=== PATIENT | female | born 1960 | race Caucasian/White ===

== ENCOUNTER 2018-07-24 07:08 | Inpatient (IN) | payer BC ==
[~2018-07-24 07:08] MED LIST: Acetaminophen 325 MG Tab PO SCH; Lactated Ringers 1,000 ML IV SCH; Lidocaine 1%/Sod Bicarbonate in NS 8.4% 1 ML Syringe IDERM PRN; Pregabalin 25 MG Cap PO SCH; Sodium Chloride 0.9% 10 ML Syringe FLUSH PRN; oxyCODONE ER 10 MG TAB.ER PO SCH
[2018-07-24] MEDS ORDERED: Bupivacaine 0.25% 10 ML SDV ONE ×3 (07:17→08:07)
[2018-07-24] MEDS ORDERED: Vancomycin 1 GM SDV ONE (07:17)
[2018-07-24] MEDS ORDERED: ceFAZolin 1 GM Vial ONE ×2 (07:17→07:44)
[2018-07-24] MEDS ORDERED: Iodine/Sodium Iodide 2% Tincture 30 ML Bottle ONE (07:17)
--- NOTE | 2018-07-24 07:28 | PCM.PREANE ---
Preanesthetic Assessment - Procedure Proposed Procedure: Right knee arthroplasty, left knee steroid injection - Anesthesia/Transfusion/Family Hx Anesthesia History: Prior Anesthesia Without Reaction Family History of Anesthesia Reaction: No Transfusion History: Prior Transfusion Without Reaction Intubation History: Unknown - Review of Systems General: No Symptoms Pulmonary: No Symptoms Cardiovascular: No Symptoms Gastrointestinal: No Symptoms Neurological: No Symptoms Other: Reports: Anxiety - Physical Assessment NPO Status Date: 07/23/18 NPO Status Time: 22:00 ASA Class: 2 Mental Status: Alert & Oriented x3 Airway Class: Mallampati = 1 Dentition: Reports: Normal Dentition Thyro-Mental Finger Breadths: 3 Mouth Opening Finger Breadths: 4 ROM/Head Extension: Full Lungs: Clear to Auscultation, Normal Respiratory Effort Cardiovascular: Regular Rate, Regular Rhythm - Lab Values: Hgb 13.9 Plt 247 - Allergies Allergies/Adverse Reactions: Allergies Allergy/AdvReac Type Severity Reaction Status Date / Time No Known Allergies Allergy Verified 07/21/18 13:39 - Blood Blood Available: No - Anesthesia Plan Pre-Op Medication Ordered: None - Acknowledgements Anesthesia Type Planned: Spinal Pt an Appropriate Candidate for the Planned Anesthesia: Yes Alternatives and Risks of Anesthesia Discussed w Pt/Guardian: Yes Pt/Guardian Understands and Agrees with Anesthesia Plan: Yes PreAnesthesia Questionnaire HEENT History: Reports: Impaired Vision Other HEENT History: wears glasses Cardiovascular History: Reports: High Cholesterol Other Cardiovascular History: Hypotension Respiratory History: Reports: SOB Gastrointestinal History: Reports: Chronic Constipation Genitourinary History: Reports: Urinary Incontinence [employer] FEEDER History: Reports: , Spontaneous Other OB/BYN History: pelvic prolapse Musculoskeletal History: Reports: Osteoarthritis Psychiatric History: Reports: Anxiety Other Psychiatric History: hx of depression and anxiety but is notan issue at this time. Hematologic History: Reports: Blood Transfusion(s) - Infectious Disease History Infectious Disease History: Reports: Chicken Pox - Past Surgical History HEENT Surgical History: Reports: None Cardiovascular Surgical History: Reports: None Respiratory Surgical History: Reports: None GI Surgical History: Reports: None Female Surgical History: Reports: Hysterectomy, Tubal Ligation, Other (See Below) Other Female Surgeries/Procedures: Bladder Sling, Diagnostic Laparascopy = bleeding from vaginal cuff Endocrine Surgical History: Reports: None Neurological Surgical History: Reports: None Musculoskeletal Surgical History: Reports: None Oncologic Surgical History: Reports: None Dermatological Surgical History: Reports: None - SUBSTANCE USE Smoking Status *Q: Current Every Day Smoker Tobacco Use Within Last Twelve Months: Cigarettes Days Per Week of Alcohol Use: 3 Number of Drinks Per Day: 1 Total Drinks Per Week: 3 Recreational Drug Use History: No - HOME MEDS Home Medications: Home Meds Escitalopram Oxalate 20 mg PO DAILY 01/26/16 [History] Spironolactone [Aldactone] 25 mg PO DAILY 01/26/16 [History] Zolpidem Tartrate 5 mg PO BEDTIME PRN 01/26/16 [History] Cholecalciferol (Vitamin D3) [Vitamin D3] 2,000 unit PO DAILY 01/27/16 [History] Docusate Sodium [Colace] 100 mg PO BID cap 01/30/16 [Rx] Polyethylene Glycol 3350 [MiraLAX] 17 gm PO TID PRN #0 packet 01/30/16 [Rx] ALPRAZolam [Xanax] 0.25 mg PO Q12H PRN 07/21/18 [History] Celecoxib [CeleBREX] 100 mg PO DAILY PRN 07/21/18 [History] Prochlorperazine Maleate [Compazine] 10 mg PO QID PRN 07/21/18 [History] atorvaSTATin [Lipitor] 10 mg PO BEDTIME 07/21/18 [History] - CURRENT (IN HOUSE) MEDS Current Meds: Current Medications Acetaminophen (Tylenol) 975 mg PO ONETIME DIANA Aspirin (Ecotrin) 325 mg PO BID DIANA Bisacodyl (Dulcolax) 5 mg PO DAILY PRN PRN Reason: Constipation Morphine Sulfate 8 mg/Epinephrine HCl 0.3 mg/Cefuroxime Sodium 750 mg/Sodium Chloride 27.9 ml 0 mg .XX ONETIME ONE Stop: 07/24/18 06:35 Cyclobenzaprine HCl (Flexeril) 10 mg PO TID PRN PRN Reason: Spasms Docusate Sodium (Colace) 100 mg PO BID DIANA Famotidine (Pepcid) 20 mg PO Q12H [facility] Lactated Ringer's (Ringers, Lactated) 1,000 mls @ 125 mls/hr IV ASDIRECTED [facility] Cefazolin Sodium/Dextrose 2 gm (/ Premix) 50 mls @ 100 mls/hr IV Q8H DIANA Stop: 07/24/18 23:14 Lidocaine/Sodium Bicarbonate (Buffered Lidocaine 1% In Ns 8.4%) 0.25 ml IDERM ONETIME PRN PRN Reason: Prior to IV Start Magnesium Hydroxide (Milk Of Magnesia) 30 ml PO BID PRN PRN Reason: Constipation Morphine Sulfate (Morphine) 2 mg IVPUSH Q2H PRN PRN Reason: Breakthrough Pain Naloxone HCl (Narcan) 0.1 mg IVPUSH Q5M PRN PRN Reason: Oversedation Ondansetron HCl (Zofran) 4 mg IVPUSH Q6H PRN PRN Reason: Nausea/Vomiting Oxycodone HCl (Oxycontin) 10 mg PO ONETIME DIANA Oxycodone/Acetaminophen (Percocet 325-5 Mg) 1 - 2 tab PO Q4H PRN PRN Reason: Pain Pregabalin (Lyrica) 50 mg PO ONETIME DIANA Senna (Senna) 8.6 mg PO BID PRN PRN Reason: Constipation Sodium Chloride (Saline Flush) 10 ml FLUSH ASDIRECTED PRN PRN Reason: Keep Vein Open Discontinued Medications Bupivacaine HCl (Sensorcaine-Mpf 0.25%) Confirm Administered Dose 30 ml .ROUTE .STK-MED ONE Stop: 07/24/18 07:18 Cefazolin Sodium (Ancef) Confirm Administered Dose 2 gm .ROUTE .STK-MED ONE Stop: 07/24/18 07:18 Iodine (Iodine 2% Mild Tincture) Confirm Administered Dose 30 ml .ROUTE .STK- MED ONE Stop: 07/24/18 07:18 Tranexamic Acid (Cyklokapron) Confirm Administered Dose 1,000 mg .ROUTE .STK- MED ONE Stop: 07/24/18 07:17 Vancomycin HCl (Vancomycin) Confirm Administered Dose 1 gm .ROUTE .STK-MED ONE Stop: 07/24/18 07:18
[2018-07-24] MEDS ORDERED: Propofol 200 MG/20 ML SDV ONE (07:43)
[2018-07-24] MEDS ORDERED: Midazolam 1 MG/ML 2 ML SDV ONE (07:44)
[2018-07-24] MEDS ORDERED: Lidocaine 1% 4 ML ONE ×2 (07:47→08:31)
[2018-07-24] MEDS ORDERED: Ropivacaine 0.5% 5 MG/ML 30 ML SDV ONE (07:48)
[2018-07-24] MEDS ORDERED: EPINEPHrine 1 MG/ML SDV ONE (07:48)
[2018-07-24] MEDS ORDERED: Triamcinolone Acetonide 40 MG/ML 1 ML MDV ONE ×2 (08:05→09:11)
[2018-07-24] MEDS ORDERED: Bupivacaine 0.25% 30 ML SDV ONE (08:05)
[2018-07-24] MEDS ORDERED: Bupivacaine 0.75% 30 ML SDV ONE (08:12)
[2018-07-24] MEDS ORDERED: Ondansetron 4 MG/2 ML SDV ONE (08:20)
[2018-07-24] MEDS ORDERED: Morphine 8 MG, EPINEPHrine 0.3 MG, Cefuroxime 750 MG, Sodium Chloride 0.9% 28.9 ML ONE ×4 (08:30)
[2018-07-24] MEDS ORDERED: Lactated Ringers 1,000 ML ONE ×2 (08:44→11:28)
[2018-07-24] MEDS ORDERED: ePHEDrine/Normal Saline 25 MG/5 ML Syringe ONE ×2 (09:05→11:23)
[2018-07-24] MEDS ORDERED: Sennosides 8.6 MG Tab PO PRN (09:30)
[2018-07-24] MEDS ORDERED: Naloxone 0.4 MG/ML SDV IVPUSH PRN (09:30)
[2018-07-24] MEDS ORDERED: Morphine 2 MG/ML Syringe IVPUSH PRN (09:30)
[2018-07-24] MEDS ORDERED: Bisacodyl 5 MG Tab PO PRN (09:30)
[2018-07-24] MEDS ORDERED: Magnesium Hydroxide 400 MG/5 ML Susp 30 ML Cup PO PRN (09:30)
[2018-07-24] MEDS ORDERED: Cyclobenzaprine 10 MG Tab PO PRN (09:30)
[2018-07-24] MEDS ORDERED: Ondansetron 4 MG/2 ML SDV IVPUSH PRN ×2 (09:30→10:07)
[2018-07-24] MEDS ORDERED: Polyethylene Glycol 3350 Powder 17 GM Packet PO PRN (09:44)
[2018-07-24] MEDS ORDERED: ALPRAZolam 0.25 MG Tab PO PRN (09:44)
--- NOTE | 2018-07-24 10:05 | PCM.POSTAN ---
POST ANESTHESIA ASSESSMENT - MENTAL STATUS Mental Status: Alert - VITAL SIGNS Pulse Rate: 68 SaO2: 98 Resp Rate: 10 Blood Pressure: 114/73 Temperature: 36.5 C - RESPIRATORY Respiratory Status: Respiratory Rate WNL, Airway Patent, O2 Saturation Stable - CARDIOVASCULAR CV Status: Pulse Rate WNL, Blood Pressure Stable - GASTROINTESTINAL GI Status: No Symptoms - POST OP HYDRATION Hydration Status: Adequate & Stable
[2018-07-24] MEDS ORDERED: diphenhydrAMINE 50 MG/ML SDV IVPUSH PRN (10:07)
[2018-07-24] MEDS ORDERED: fentaNYL 100 MCG/2 ML SDV IVPUSH PRN (10:07)
--- NOTE | 2018-07-24 10:37 | PCM.SN ---
- Free Text/Narrative Note: Right selective femoral nerve block at the adductor canal for post-procedure pain control Time Out: 1020 Start: 1022 End: 1025 Chart reviewed. Consent signed. Questions answered. Appropriate monitors applied. Time out performed. Right mid-shaft femur evaluated with ultrasound. Scanning medially femur, I was able to identify the femoral artery in the adductor canal. The saphenous nerve was lateral to the artery. The skin was prepped lateral to the ultrasound probe with chlorahexadine. The 21ga 4 insulated block needle was inserted under direct ultrasound guidance into the adductor canal. 20mL of 0.5% ropivacaine with 1:200,000 epinephrine was injected cirmcumferentially about the nerve with intermittent negative aspiration every 5mL. Patient tolerated the procedure well. See pictures on progress note and vital signs on nurses notes. Block completed postoperatively. Chris Dutta LINESPERSON
--- NOTE | 2018-07-24 11:10 | CR ---
Right knee: AP and lateral views of the right knee were obtained. Comparison: No prior knee study. Knee prosthesis is seen. Soft tissue air is noted from the surgical procedure. Underlying bony structures are intact. Impression: 1. Satisfactory postoperative radiographic appearance of recently placed right knee prosthesis. Diagnostic code #2
[2018-07-24] MEDS ORDERED: Phenylephrine/Normal Saline 100 MCG/ML 10 ML Syringe ONE (12:05)
[2018-07-24] MEDS: Acetaminophen/oxyCODONE 325-5 MG Tab PO PRN ×3 (14:08→23:52)
[2018-07-24] MEDS: ceFAZolin 2 GM in Premix Bag 1 BAG IV SCH ×2 (15:13→23:34)
--- NOTE | 2018-07-24 16:03 | PCM.CONS ---
H&P History of Present Illness - General Date of Service: 07/24/18 Admit Problem/Dx: Admission Diagnosis/Problem Admission Diagnosis/Problem Osteoarthritis of knee Source of Information: Patient, Old Records, Provider, RN, RN Notes Reviewed History Limitations: Reports: No Limitations - History of Present Illness Initial Comments - Free Text/Narative: Ermelinda Case is a 58 yo female patient of Dr. Rodriguez who is post-operative day 0 of right TKA with left knee steroid injection. Hospital medicine was consulted for post-operative medical care. At this time she is resting comfortably in bed. Pain is controlled. She denies any chest pain, shortness of breath, palpitations , nausea, or vomiting. She carries a history of: Abnormal EKG, HLD, Hypotension , Chronic constipation, urinary incontinency, pelvic prolapse, osteoarthritis, anxiety. She is a current daily smoker. She is a full code. Her primary care provider is Christine Ramirez NP. - Related Data Allergies/Adverse Reactions: Allergies Allergy/AdvReac Type Severity Reaction Status Date / Time No Known Allergies Allergy Verified 07/21/18 13:39 Home Medications: Home Meds Escitalopram Oxalate 20 mg PO DAILY 01/26/16 [History] Spironolactone [Aldactone] 25 mg PO DAILY 01/26/16 [History] Zolpidem Tartrate 5 mg PO BEDTIME PRN 01/26/16 [History] Cholecalciferol (Vitamin D3) [Vitamin D3] 2,000 unit PO DAILY 01/27/16 [History] Docusate Sodium [Colace] 100 mg PO BID cap 01/30/16 [Rx] Polyethylene Glycol 3350 [MiraLAX] 17 gm PO TID PRN #0 packet 01/30/16 [Rx] ALPRAZolam [Xanax] 0.25 mg PO Q12H PRN 07/21/18 [History] Prochlorperazine Maleate [Compazine] 10 mg PO QID PRN 07/21/18 [History] atorvaSTATin [Lipitor] 10 mg PO BEDTIME 07/21/18 [History] Acetaminophen/oxyCODONE [Percocet 325-5 MG] 1 - 2 tab PO Q6H PRN #60 tablet [Rx] Aspirin [Ecotrin] 325 mg PO BID #84 tab.ec 07/24/18 [Rx] Bisacodyl [Dulcolax] 5 mg PO DAILY PRN tablet 07/24/18 [Rx] Cyclobenzaprine [Flexeril] 10 mg PO TID PRN #40 tablet 07/24/18 [Rx] Famotidine [Pepcid] 20 mg PO Q12H tablet 07/24/18 [Rx] Magnesium Hydroxide [Milk of Magnesia] 30 ml PO BID PRN cup 07/24/18 [Rx] Sennosides [Senna] 8.6 mg PO BID PRN tablet 07/24/18 [Rx] Past Medical History HEENT History: Reports: Impaired Vision Other HEENT History: wears glasses Cardiovascular History: Reports: High Cholesterol Other Cardiovascular History: Hypotension Respiratory History: Reports: SOB Gastrointestinal History: Reports: Chronic Constipation Genitourinary History: Reports: Urinary Incontinence [employer] WRAPPER History: Reports: , Spontaneous Other OB/BYN History: pelvic prolapse Musculoskeletal History: Reports: Osteoarthritis Psychiatric History: Reports: Anxiety Other Psychiatric History: hx of depression and anxiety but is notan issue at this time. Hematologic History: Reports: Blood Transfusion(s) - Infectious Disease History Infectious Disease History: Reports: Chicken Pox - Past Surgical History HEENT Surgical History: Reports: None Cardiovascular Surgical History: Reports: None Respiratory Surgical History: Reports: None GI Surgical History: Reports: None Female Surgical History: Reports: Hysterectomy, Tubal Ligation, Other (See Below) Other Female Surgeries/Procedures: Bladder Sling, Diagnostic Laparascopy = bleeding from vaginal cuff Endocrine Surgical History: Reports: None Neurological Surgical History: Reports: None Musculoskeletal Surgical History: Reports: None Oncologic Surgical History: Reports: None Dermatological Surgical History: Reports: None Social & Family History - Family History Family Medical History: Noncontributory Cardiac: Reports: Hypertension, Other (See Below) Other Cardiac Family History: atheroschlerosis Neurological: Reports: Alzheimers Disease - Tobacco Use Smoking Status *Q: Light Tobacco Smoker Years of Tobacco use: 1 Packs/Tins Daily: 0.2 Used Tobacco, but Quit: No Tobacco Use Comment: States she smoke in the past for about 10years and quit when she was 31 years old, but started again 1.5 years ago. Recenlty trying to quit. Second Hand Smoke Exposure: No - Caffeine Use Caffeine Use: Reports: Coffee, Soda Other Caffeine Use: 1 cup in the AM. - Alcohol Use Days Per Week of Alcohol Use: 3 Number of Drinks Per Day: 2 Total Drinks Per Week: 6 - Recreational Drug Use Recreational Drug Use: No Drug Use in Last 12 Months: No H&P Review of Systems - Review of Systems: Review Of Systems: See Below General: Reports: No Symptoms. Denies: Fever, Chills, Malaise, Fatigue HEENT: Reports: No Symptoms. Denies: Headaches, Sore Throat Pulmonary: Reports: No Symptoms. Denies: Shortness of Breath, Wheezing, Pleuritic Chest Pain, Cough, Sputum Cardiovascular: Reports: No Symptoms. Denies: Chest Pain, Palpitations, Dyspnea on Exertion, Edema Gastrointestinal: Reports: No Symptoms. Denies: Abdominal Pain, Constipation, Diarrhea, Nausea, Vomiting Genitourinary: Reports: No Symptoms. Denies: Pain Musculoskeletal: Reports: Leg Pain Skin: Reports: No Symptoms. Denies: Cyanosis Psychiatric: Reports: No Symptoms. Denies: Confusion Neurological: Reports: No Symptoms Hematologic/Lymphatic: Reports: No Symptoms Immunologic: Reports: No Symptoms Exam - Exam Exam: See Below - Vital Signs Vital Signs: Last Vital Signs Temp 97.2 F 07/24/18 11:00 Pulse 73 07/24/18 14:31 Resp 10 L 07/24/18 11:00 BP 127/76 07/24/18 14:31 Pulse Ox 97 07/24/18 14:31 Weight: 134 lb - Exam Quality Assessment: DVT Prophylaxis General: Alert, Oriented, Cooperative. No: Mild Distress HEENT: Conjunctiva Clear, EACs Clear, EOMI, Hearing Intact, Mucosa Moist & Burket , Posterior Pharynx Clear, PERRLA Neck: Supple, Trachea Midline Lungs: Clear to Auscultation, Normal Respiratory Effort Cardiovascular: Regular Rate, Regular Rhythm GI/Abdominal Exam: Normal Bowel Sounds, Soft, Non-Tender, No Organomegaly, No Distention (Female) Exam: Deferred Rectal (Female) Exam: Deferred Back Exam: Normal Inspection, Full Range of Motion Extremities: Non-Tender, No Pedal Edema, Normal Capillary Refill, Leg Pain, Limited Range of Motion, Other (Bandage in place on right leg. Bandage is dry and intact. Cooling pack in place. ) Peripheral Pulses: 2+: Radial (L), Radial (R), Dorsalis Pedis (L), Dorsalis Pedis (R) Skin: Warm, Dry, Intact Neurological: Cranial Nerves Intact (grossly ) Neuro Extensive - Mental Status: Alert, Oriented x3, Normal Mood/Affect, Normal Cognition Consult PN Assessment/Plan POD#: 0 Procedures: Procedures CARDIOVASCULAR STRESS TEST (07/20/18) CT ABD & PELV W/CONTRAST (06/11/14) HT MUSCLE IMAGE SPECT MULT (07/20/18) MR-STAPH DNA AMP PROBE (07/12/18) (1) S/P total knee arthroplasty SNOMED Code(s): 3207970818362, 509934822, 0892035523841 Code(s): Z96.659 - PRESENCE OF UNSPECIFIED ARTIFICIAL KNEE JOINT Priority: High Current Visit: Yes Qualifiers: Laterality: bilateral Qualified Code(s): Z96.653 - Presence of artificial knee joint, bilateral (2) Osteoarthritis SNOMED Code(s): 222457181 Code(s): M19.90 - UNSPECIFIED OSTEOARTHRITIS, UNSPECIFIED SITE Priority: High Current Visit: Yes Qualifiers: Osteoarthritis location: knee Osteoarthritis type: primary Laterality: bilateral Qualified Code(s): M17.0 - Bilateral primary osteoarthritis of knee (3) HLD (hyperlipidemia) SNOMED Code(s): 43642008 Code(s): E78.5 - HYPERLIPIDEMIA, UNSPECIFIED Priority: Medium Current Visit: No Qualifiers: Hyperlipidemia type: unspecified Qualified Code(s): E78.5 - Hyperlipidemia , unspecified (4) HTN (hypertension) SNOMED Code(s): 95924522 Code(s): I10 - ESSENTIAL (PRIMARY) HYPERTENSION Priority: Medium Current Visit: No Qualifiers: Hypertension type: unspecified Qualified Code(s): I10 - Essential (primary ) hypertension (5) Chronic constipation SNOMED Code(s): 513156893 Code(s): K59.09 - OTHER CONSTIPATION Priority: Medium Current Visit: No (6) Urinary incontinence SNOMED Code(s): 754417826 Code(s): R32 - UNSPECIFIED URINARY INCONTINENCE Priority: Medium Current Visit: No Qualifiers: Urinary Incontinence type: unspecified incontinence Qualified Code(s): R32 - Unspecified urinary incontinence (7) Pelvic prolapse SNOMED Code(s): 61987139 Code(s): N81.9 - FEMALE GENITAL PROLAPSE, UNSPECIFIED Priority: Low Current Visit: No Qualifiers: Prolapse type: unspecified female genital prolapse Qualified Code(s): N81.9 - Female genital prolapse, unspecified (8) Anxiety SNOMED Code(s): 95044078 Code(s): F41.9 - ANXIETY DISORDER, UNSPECIFIED Priority: Medium Current Visit: No Problem List Initiated/Reviewed/Updated: Yes Plan: I/P: Acute: S/P right total knee arthroplasty - post-operative day 0 -DVT prophylaxis and pain management per primary care team -PT/OT -IS/RT -Monitor oxygen saturation -Titrate oxygen as needed -Vital signs stable -Monitor labs -Pre-operative Hgb was 13.9 -Pre-operative GFR was 88 Osteoarthritis of bilateral knees -Pain management per primary care team S/P left knee cortisone injection Chronic: HLD HTN Chronic constipation Urinary incontinence Pelvic prolapse Anxiety Plan: CM for discharge planning GI prophylaxis Home medications as indicated Other orders as listed above Routine AM labs She is a full code. Her PCP is Christine Ramirez NP Thank you for allowing us to participate in the care of this patient!! Requesting Provider: Dr. Rodriguez Date Consult Requested: 07/24/18 Reason for Consult: Post-operative medical management Patient History Reviewed: Yes Admission H&P Reviewed: Yes Time Spent (in minutes): 40
[2018-07-24] MEDS: Famotidine 20 MG Tab PO SCH (20:00)
[2018-07-24] MEDS ORDERED: Zolpidem 5 MG Tab PO PRN (21:00)
[2018-07-24] MEDS ORDERED: Simvastatin 10 MG Tab PO SCH (21:00)
[2018-07-24] MEDS ORDERED: Docusate Sodium 100 MG Cap PO SCH ×2 (21:00)
[2018-07-25] MEDS: Acetaminophen/oxyCODONE 325-5 MG Tab PO PRN ×2 (04:22→08:22)
--- NOTE | 2018-07-25 06:31 | PCM.CONSN ---
- General Info Date of Service: 07/25/18 Admission Dx/Problem (Free Text): Admission Diagnosis/Problem Admission Diagnosis/Problem Osteoarthritis of knee Subjective Update: In to see Ermelinda. She is just getting been working with PT and she's been doing very well. Labs and vital signs today remains stable. No nursing or patient concerns. Functional Status: Reports: Pain Controlled, Tolerating Diet, Ambulating, Urinating, Incentive Spirometry. Denies: New Symptoms - Review of Systems General: Reports: No Symptoms. Denies: Fever, Weakness, Fatigue, Malaise, Chills HEENT: Reports: No Symptoms. Denies: Headaches, Sore Throat Pulmonary: Reports: No Symptoms. Denies: Shortness of Breath, Pleuritic Chest Pain, Cough, Sputum, Wheezing Cardiovascular: Reports: No Symptoms. Denies: Chest Pain, Palpitations, Dyspnea on Exertion Gastrointestinal: Reports: No Symptoms. Denies: Abdominal Pain, Constipation, Diarrhea, Nausea, Vomiting Genitourinary: Reports: No Symptoms. Denies: Pain Musculoskeletal: Reports: Leg Pain Skin: Reports: No Symptoms. Denies: Cyanosis Neurological: Reports: No Symptoms. Denies: Confusion Psychiatric: Reports: No Symptoms - Patient Data Vitals - Most Recent: Last Vital Signs Temp 97.9 F 07/24/18 23:43 Pulse 74 07/25/18 04:25 Resp 18 07/25/18 04:25 BP 134/73 07/25/18 04:25 Pulse Ox 98 07/25/18 04:25 Weight - Most Recent: 136 lb 11.2 oz I&O - Last 24 Hours: Intake & Output 07/24/18 07/24/18 07/25/18 14:59 22:59 06:59 Intake Total 181 554 2046 Output Total 2750 Balance 250 500 -1500 Med Orders - Current: Current Medications Alprazolam (Xanax) 0.25 mg PO Q12H PRN PRN Reason: Anxiety Aspirin (Ecotrin) 325 mg PO BID [facility] Bisacodyl (Dulcolax) 5 mg PO DAILY PRN PRN Reason: Constipation Cholecalciferol (Vitamin D3) 2,000 units PO DAILY [facility] Citalopram Hydrobromide (Celexa) 40 mg PO DAILY [facility] Cyclobenzaprine HCl (Flexeril) 10 mg PO TID PRN PRN Reason: Spasms Famotidine (Pepcid) 20 mg PO Q12H [facility] Last Admin: 07/24/18 20:00 Dose: 20 mg Cefazolin Sodium/Dextrose 2 gm (/ Premix) 50 mls @ 100 mls/hr IV Q8H [facility] Stop: 07/25/18 08:29 Last Admin: 07/24/18 23:34 Dose: 100 mls/hr Magnesium Hydroxide (Milk Of Magnesia) 30 ml PO BID PRN PRN Reason: Constipation Morphine Sulfate (Morphine) 2 mg IVPUSH Q2H PRN PRN Reason: Breakthrough Pain Naloxone HCl (Narcan) 0.1 mg IVPUSH Q5M PRN PRN Reason: Oversedation Ondansetron HCl (Zofran) 4 mg IVPUSH Q6H PRN PRN Reason: Nausea/Vomiting Oxycodone/Acetaminophen (Percocet 325-5 Mg) 1 - 2 tab PO Q4H PRN PRN Reason: Pain Last Admin: 07/25/18 04:22 Dose: 2 tab Polyethylene Glycol (Miralax) 17 gm PO TID PRN PRN Reason: Constipation Senna (Senna) 8.6 mg PO BID PRN PRN Reason: Constipation Simvastatin (Zocor) 10 mg PO BEDTIME [facility] Last Admin: 07/24/18 20:00 Dose: 10 mg Spironolactone (Aldactone) 25 mg PO DAILY [facility] Zolpidem Tartrate (Ambien) 5 mg PO BEDTIME PRN PRN Reason: Insomnia Discontinued Medications Acetaminophen (Tylenol) 975 mg PO ONETIME [facility] Stop: 07/24/18 10:00 Last Admin: 07/24/18 07:36 Dose: 975 mg Bupivacaine HCl (Sensorcaine-Mpf 0.25%) Confirm Administered Dose 30 ml .ROUTE .STK-MED ONE Stop: 07/24/18 07:18 Bupivacaine HCl (Sensorcaine-Mpf 0.25%) Confirm Administered Dose 10 ml .ROUTE .STK-MED ONE Stop: 07/24/18 07:48 Last Admin: 07/24/18 09:18 Dose: 30 ml Bupivacaine HCl (Marcaine 0.25%) Confirm Administered Dose 30 ml .ROUTE .STK- MED ONE Stop: 07/24/18 08:06 Bupivacaine HCl (Sensorcaine-Mpf 0.25%) Confirm Administered Dose 10 ml .ROUTE .STK-MED ONE Stop: 07/24/18 08:08 Last Admin: 07/24/18 09:38 Dose: 4 ml Bupivacaine HCl (Sensorcaine-Mpf 0.75%) Confirm Administered Dose 30 ml .ROUTE .STK-MED ONE Stop: 07/24/18 08:13 Cefazolin Sodium (Ancef) Confirm Administered Dose 2 gm .ROUTE .STK-MED ONE Stop: 07/24/18 07:18 Last Admin: 07/24/18 09:13 Dose: 2 gm Cefazolin Sodium (Ancef) Confirm Administered Dose 2 gm .ROUTE .STK-MED ONE Stop: 07/24/18 07:45 Morphine Sulfate 8 mg/Epinephrine HCl 0.3 mg/Cefuroxime Sodium 750 mg/Sodium Chloride 28.9 ml 0 mg .XX ONETIME ONE Stop: 07/24/18 08:31 Last Admin: 07/24/18 09:17 Dose: 758.3 mg Diphenhydramine HCl (Benadryl) 25 mg IVPUSH Q6H PRN PRN Reason: pruritis Stop: 07/24/18 13:00 Docusate Sodium (Colace) 100 mg PO BID [facility] Ephedrine Sulfate (Ephedrine In Ns) Confirm Administered Dose 25 mg .ROUTE .STK- MED ONE Stop: 07/24/18 09:06 Ephedrine Sulfate (Ephedrine In Ns) Confirm Administered Dose 25 mg .ROUTE .STK- MED ONE Stop: 07/24/18 11:24 Epinephrine HCl (Adrenalin) Confirm Administered Dose 1 mg .ROUTE .STK-MED ONE Stop: 07/24/18 07:49 Fentanyl (Sublimaze) 50 mcg IVPUSH Q5M PRN PRN Reason: Pain Stop: 07/24/18 13:00 Lactated Ringer's (Ringers, Lactated) 1,000 mls @ 125 mls/hr IV ASDIRECTED [facility] Stop: 07/24/18 23:00 Last Admin: 07/24/18 07:25 Dose: 125 mls/hr Lidocaine HCl (Xylocaine-Mpf 1%) Confirm Administered Dose 4 mls @ as directed .ROUTE .STK-MED ONE Stop: 07/24/18 07:48 Lidocaine HCl (Xylocaine-Mpf 1%) Confirm Administered Dose 5 mls @ as directed .ROUTE .STK-MED ONE Stop: 07/24/18 07:48 Lidocaine HCl (Xylocaine-Mpf 1%) Confirm Administered Dose 4 mls @ as directed .ROUTE .[facility] ONE Stop: 07/24/18 08:32 Lactated Ringer's (Ringers, Lactated) Confirm Administered Dose 1,000 mls @ as directed .ROUTE .[facility] ONE Stop: 07/24/18 08:45 Lactated Ringer's (Ringers, Lactated) Confirm Administered Dose 1,000 mls @ as directed .ROUTE .[facility] ONE Stop: 07/24/18 11:29 Iodine (Iodine 2% Mild Tincture) Confirm Administered Dose 30 ml .ROUTE .[facility] ONE Stop: 07/24/18 07:18 Last Admin: 07/24/18 09:11 Dose: 18 ml Lidocaine/Sodium Bicarbonate (Buffered Lidocaine 1% In Ns 8.4%) 0.25 ml IDERM ONETIME PRN PRN Reason: Prior to IV Start Stop: 07/24/18 18:00 Last Admin: 07/24/18 07:20 Dose: 0.25 ml Midazolam HCl (Versed 1 Mg/Ml) Confirm Administered Dose 2 mg .ROUTE .[facility] ONE Stop: 07/24/18 07:45 Ondansetron HCl (Zofran) Confirm Administered Dose 4 mg .ROUTE .[facility] ONE Stop: 07/24/18 08:21 Ondansetron HCl (Zofran) 4 mg IVPUSH ONETIME PRN PRN Reason: Nausea/Vomiting Stop: 07/24/18 13:00 Oxycodone HCl (Oxycontin) 10 mg PO ONETIME [facility] Stop: 07/24/18 10:00 Last Admin: 07/24/18 07:35 Dose: 10 mg Phenylephrine HCl (Phenylephrine In Ns 100 Mcg/Ml) Confirm Administered Dose 1 mg .ROUTE .[facility] ONE Stop: 07/24/18 12:06 Pregabalin (Lyrica) 50 mg PO ONETIME [facility] Stop: 07/24/18 10:00 Last Admin: 07/24/18 07:36 Dose: 50 mg Propofol (Diprivan 20 Ml) Confirm Administered Dose 400 mg .ROUTE .[facility] ONE Stop: 07/24/18 07:44 Ropivacaine (Naropin 0.5%) Confirm Administered Dose 30 ml .ROUTE .STK-MED ONE Stop: 07/24/18 07:49 Sodium Chloride (Saline Flush) 10 ml FLUSH ASDIRECTED PRN PRN Reason: Keep Vein Open Stop: 07/24/18 18:00 Tranexamic Acid (Cyklokapron) Confirm Administered Dose 1,000 mg .ROUTE .STK- MED ONE Stop: 07/24/18 07:17 Last Admin: 07/24/18 09:24 Dose: 1,000 mg Triamcinolone Acetonide (Kenalog-40) Confirm Administered Dose 40 mg .ROUTE .STK -MED ONE Stop: 07/24/18 08:06 Last Admin: 07/24/18 09:38 Dose: 80 mg Triamcinolone Acetonide (Kenalog-40) Confirm Administered Dose 40 mg .ROUTE .STK -MED ONE Stop: 07/24/18 09:12 Vancomycin HCl (Vancomycin) Confirm Administered Dose 1 gm .ROUTE .STK-MED ONE Stop: 07/24/18 07:18 Last Admin: 07/24/18 09:20 Dose: 1 gm - Exam Quality Assessment: DVT Prophylaxis General: Alert, Oriented, Cooperative, No Acute Distress HEENT: Pupils Equal, Pupils Reactive, EOMI, Mucous Membr. Moist/[place] Neck: Supple, Trachea Midline, No JVD Lungs: Clear to Auscultation, Normal Respiratory Effort Cardiovascular: Regular Rate, Regular Rhythm GI/Abdominal Exam: Normal Bowel Sounds, Soft, Non-Tender, No Organomegaly, No Distention (Female) Exam: Deferred Back Exam: Normal Inspection, Full Range of Motion Extremities: Non-Tender, No Pedal Edema, Normal Capillary Refill, Leg Pain, Limited Range of Motion, Other (Bandage in place on right leg. Cooling pack in place ) Peripheral Pulses: 2+: Radial (L), Radial (R), Dorsalis Pedis (L), Dorsalis Pedis (R) Skin: Warm, Dry, Intact Wound/Incisions: Dressing Dry and Intact, No Drainage Neurological: No New Focal Deficit Psy/Mental Status: Alert, Normal Affect, Normal Mood Consult PN Assessment/Plan POD#: 1 Procedures: Procedures CARDIOVASCULAR STRESS TEST (07/20/18) CT ABD & PELV W/CONTRAST (06/11/14) HT MUSCLE IMAGE SPECT MULT (07/20/18) [facility] DNA AMP PROBE (07/12/18) (1) S/P total knee arthroplasty SNOMED Code(s): 2400386621154, 691008540, 2865148373871 Code(s): Z96.659 - PRESENCE OF UNSPECIFIED ARTIFICIAL KNEE JOINT Priority: High Current Visit: Yes Qualifiers: Laterality: bilateral Qualified Code(s): Z96.653 - Presence of artificial knee joint, bilateral (2) Osteoarthritis SNOMED Code(s): 402644554 Code(s): M19.90 - UNSPECIFIED OSTEOARTHRITIS, UNSPECIFIED SITE Priority: High Current Visit: Yes Qualifiers: Osteoarthritis location: knee Osteoarthritis type: primary Laterality: bilateral Qualified Code(s): M17.0 - Bilateral primary osteoarthritis of knee (3) HLD (hyperlipidemia) SNOMED Code(s): 37769273 Code(s): E78.5 - HYPERLIPIDEMIA, UNSPECIFIED Priority: Medium Current Visit: No Qualifiers: Hyperlipidemia type: unspecified Qualified Code(s): E78.5 - Hyperlipidemia , unspecified (4) HTN (hypertension) SNOMED Code(s): 70661530 Code(s): I10 - ESSENTIAL (PRIMARY) HYPERTENSION Priority: Medium Current Visit: No Qualifiers: Hypertension type: unspecified Qualified Code(s): I10 - Essential (primary ) hypertension (5) Chronic constipation SNOMED Code(s): 434629315 Code(s): K59.09 - OTHER CONSTIPATION Priority: Medium Current Visit: No (6) Urinary incontinence SNOMED Code(s): 790873420 Code(s): R32 - UNSPECIFIED URINARY INCONTINENCE Priority: Medium Current Visit: No Qualifiers: Urinary Incontinence type: unspecified incontinence Qualified Code(s): R32 - Unspecified urinary incontinence (7) Pelvic prolapse SNOMED Code(s): 23788294 Code(s): N81.9 - FEMALE GENITAL PROLAPSE, UNSPECIFIED Priority: Low Current Visit: No Qualifiers: Prolapse type: unspecified female genital prolapse Qualified Code(s): N81.9 - Female genital prolapse, unspecified (8) Anxiety SNOMED Code(s): 38346702 Code(s): F41.9 - ANXIETY DISORDER, UNSPECIFIED Priority: Medium Current Visit: No Problem List Initiated/Reviewed/Updated: Yes Plan: I/P: Acute: S/P right total knee arthroplasty - post-operative day 1 -DVT prophylaxis and pain management per primary care team -PT/OT -IS/RT -Monitor oxygen saturation -Titrate oxygen as needed -Vital signs stable -Monitor labs -Pre-operative Hgb was 13.9; Now 12.2 -Pre-operative GFR was 88; Now >60 Osteoarthritis of bilateral knees -Pain management per primary care team S/P left knee cortisone injection Chronic: HLD HTN Chronic constipation Urinary incontinence Pelvic prolapse Anxiety Plan: CM for discharge planning GI prophylaxis Home medications as indicated Other orders as listed above Routine AM labs She is a full code. Her PCP is Christine Ramirez NP From a hospitalist standpoint Ermelinda is doing well. She has been up ambulating and working with therapies. Pain is controlled. She has urinated and is off of oxygen. Labs and vital signs remain stable. No nursing or patient concerns. She is cleared for discharge pending primary team and PT/OT agreement. Thank you for allowing us to participate in the care of this patient!!
--- NOTE | 2018-07-25 07:48 | PCM.SURGPN ---
- General Info Date of Service: 07/25/18 POD#: 1 Functional Status: Reports: Pain Controlled, Tolerating Diet, Ambulating, Urinating, Incentive Spirometry, Other (The pt states she is doing well. ) - Patient Data Vitals - Most Recent: Last Vital Signs Temp 97.9 F 07/24/18 23:43 Pulse 74 07/25/18 04:25 Resp 18 07/25/18 04:25 BP 134/73 07/25/18 04:25 Pulse Ox 98 07/25/18 04:25 Weight - Most Recent: 136 lb 11.2 oz I&O - Last 24 Hours: Intake & Output 07/24/18 07/25/18 07/25/18 22:59 06:59 14:59 Intake Total 500 1250 Output Total 2750 Balance 500 -1500 Lab Results Last 24 Hrs: Laboratory Results - last 24 hr 07/25/18 07/25/18 Range/Units 05:41 05:41 WBC 7.99 (3.98-10.04) K/mm3 RBC 3.76 L (3.98-5.22) M/mm3 Hgb 12.2 (11.2-15.7) gm/L Hct 36.1 (34.1-44.9) % MCV 96.0 H (79.4-94.8) fl MCH 32.4 H (25.6-32.2) pg MCHC 33.8 (32.2-35.5) g/dl RDW Std Deviation 43.2 (36.4-46.3) fL Plt Count 244 (182-369) K/mm3 MPV 10.2 (9.4-12.3) fl Sodium 135 L (136-145) mEq/L Potassium 4.2 (3.5-5.1) mEq/L Chloride 99 (98-107) mEq/L Carbon Dioxide 27 (21-32) mEq/L Anion Gap 13.2 (5-15) BUN 13 (7-18) mg/dL Creatinine 0.8 (0.55-1.02) mg/dL Est Cr Clr Drug Dosing 61.36 mL/min Estimated GFR (MDRD) > 60 (>60) mL/min BUN/Creatinine Ratio 16.3 (14-18) Glucose 140 H (74-106) mg/dL Calcium 9.0 (8.5-10.1) mg/dL Total Bilirubin 0.5 (0.2-1.0) mg/dL AST 16 (15-37) U/L ALT 33 (14-59) U/L Alkaline Phosphatase 50 (46-116) U/L Total Protein 6.6 (6.4-8.2) g/dl Albumin 3.5 (3.4-5.0) g/dl Globulin 3.1 gm/dL Albumin/Globulin Ratio 1.1 (1-2) Med Orders - Current: Current Medications Alprazolam (Xanax) 0.25 mg PO Q12H PRN PRN Reason: Anxiety Aspirin (Ecotrin) 325 mg PO BID [facility] Bisacodyl (Dulcolax) 5 mg PO DAILY PRN PRN Reason: Constipation Cholecalciferol (Vitamin D3) 2,000 units PO DAILY [facility] Citalopram Hydrobromide (Celexa) 40 mg PO DAILY [facility] Cyclobenzaprine HCl (Flexeril) 10 mg PO TID PRN PRN Reason: Spasms Last Admin: 07/25/18 07:07 Dose: 10 mg Famotidine (Pepcid) 20 mg PO Q12H [facility] Last Admin: 07/24/18 20:00 Dose: 20 mg Cefazolin Sodium/Dextrose 2 gm (/ Premix) 50 mls @ 100 mls/hr IV Q8H [facility] Stop: 07/25/18 08:29 Last Admin: 07/24/18 23:34 Dose: 100 mls/hr Magnesium Hydroxide (Milk Of Magnesia) 30 ml PO BID PRN PRN Reason: Constipation Morphine Sulfate (Morphine) 2 mg IVPUSH Q2H PRN PRN Reason: Breakthrough Pain Naloxone HCl (Narcan) 0.1 mg IVPUSH Q5M PRN PRN Reason: Oversedation Ondansetron HCl (Zofran) 4 mg IVPUSH Q6H PRN PRN Reason: Nausea/Vomiting Oxycodone/Acetaminophen (Percocet 325-5 Mg) 1 - 2 tab PO Q4H PRN PRN Reason: Pain Last Admin: 07/25/18 04:22 Dose: 2 tab Polyethylene Glycol (Miralax) 17 gm PO TID PRN PRN Reason: Constipation Senna (Senna) 8.6 mg PO BID PRN PRN Reason: Constipation Simvastatin (Zocor) 10 mg PO BEDTIME [facility] Last Admin: 07/24/18 20:00 Dose: 10 mg Spironolactone (Aldactone) 25 mg PO DAILY [facility] Zolpidem Tartrate (Ambien) 5 mg PO BEDTIME PRN PRN Reason: Insomnia Discontinued Medications Acetaminophen (Tylenol) 975 mg PO ONETIME [facility] Stop: 07/24/18 10:00 Last Admin: 07/24/18 07:36 Dose: 975 mg Bupivacaine HCl (Sensorcaine-Mpf 0.25%) Confirm Administered Dose 30 ml .ROUTE .STK-MED ONE Stop: 07/24/18 07:18 Bupivacaine HCl (Sensorcaine-Mpf 0.25%) Confirm Administered Dose 10 ml .ROUTE .STK-MED ONE Stop: 07/24/18 07:48 Last Admin: 07/24/18 09:18 Dose: 30 ml Bupivacaine HCl (Marcaine 0.25%) Confirm Administered Dose 30 ml .ROUTE .STK- MED ONE Stop: 07/24/18 08:06 Bupivacaine HCl (Sensorcaine-Mpf 0.25%) Confirm Administered Dose 10 ml .ROUTE .STK-MED ONE Stop: 07/24/18 08:08 Last Admin: 07/24/18 09:38 Dose: 4 ml Bupivacaine HCl (Sensorcaine-Mpf 0.75%) Confirm Administered Dose 30 ml .ROUTE .STK-MED ONE Stop: 07/24/18 08:13 Cefazolin Sodium (Ancef) Confirm Administered Dose 2 gm .ROUTE .STK-MED ONE Stop: 07/24/18 07:18 Last Admin: 07/24/18 09:13 Dose: 2 gm Cefazolin Sodium (Ancef) Confirm Administered Dose 2 gm .ROUTE .STK-MED ONE Stop: 07/24/18 07:45 Morphine Sulfate 8 mg/Epinephrine HCl 0.3 mg/Cefuroxime Sodium 750 mg/Sodium Chloride 28.9 ml 0 mg .XX ONETIME ONE Stop: 07/24/18 08:31 Last Admin: 07/24/18 09:17 Dose: 758.3 mg Diphenhydramine HCl (Benadryl) 25 mg IVPUSH Q6H PRN PRN Reason: pruritis Stop: 07/24/18 13:00 Docusate Sodium (Colace) 100 mg PO BID [facility] Ephedrine Sulfate (Ephedrine In Ns) Confirm Administered Dose 25 mg .ROUTE .STK- MED ONE Stop: 07/24/18 09:06 Ephedrine Sulfate (Ephedrine In Ns) Confirm Administered Dose 25 mg .ROUTE .STK- MED ONE Stop: 07/24/18 11:24 Epinephrine HCl (Adrenalin) Confirm Administered Dose 1 mg .ROUTE .STK-MED ONE Stop: 07/24/18 07:49 Fentanyl (Sublimaze) 50 mcg IVPUSH Q5M PRN PRN Reason: Pain Stop: 07/24/18 13:00 Lactated Ringer's (Ringers, Lactated) 1,000 mls @ 125 mls/hr IV ASDIRECTED [facility] Stop: 07/24/18 23:00 Last Admin: 07/24/18 07:25 Dose: 125 mls/hr Lidocaine HCl (Xylocaine-Mpf 1%) Confirm Administered Dose 4 mls @ as directed .ROUTE .STK-MED ONE Stop: 07/24/18 07:48 Lidocaine HCl (Xylocaine-Mpf 1%) Confirm Administered Dose 5 mls @ as directed .ROUTE .STK-MED ONE Stop: 07/24/18 07:48 Lidocaine HCl (Xylocaine-Mpf 1%) Confirm Administered Dose 4 mls @ as directed .ROUTE .STK-MED ONE Stop: 07/24/18 08:32 Lactated Ringer's (Ringers, Lactated) Confirm Administered Dose 1,000 mls @ as directed .ROUTE .STK-MED ONE Stop: 07/24/18 08:45 Lactated Ringer's (Ringers, Lactated) Confirm Administered Dose 1,000 mls @ as directed .ROUTE .STK-MED ONE Stop: 07/24/18 11:29 Iodine (Iodine 2% Mild Tincture) Confirm Administered Dose 30 ml .ROUTE .STK- MED ONE Stop: 07/24/18 07:18 Last Admin: 07/24/18 09:11 Dose: 18 ml Lidocaine/Sodium Bicarbonate (Buffered Lidocaine 1% In Ns 8.4%) 0.25 ml IDERM ONETIME PRN PRN Reason: Prior to IV Start Stop: 07/24/18 18:00 Last Admin: 07/24/18 07:20 Dose: 0.25 ml Midazolam HCl (Versed 1 Mg/Ml) Confirm Administered Dose 2 mg .ROUTE .STK-MED ONE Stop: 07/24/18 07:45 Ondansetron HCl (Zofran) Confirm Administered Dose 4 mg .ROUTE .STK-MED ONE Stop: 07/24/18 08:21 Ondansetron HCl (Zofran) 4 mg IVPUSH ONETIME PRN PRN Reason: Nausea/Vomiting Stop: 07/24/18 13:00 Oxycodone HCl (Oxycontin) 10 mg PO ONETIME [facility] Stop: 07/24/18 10:00 Last Admin: 07/24/18 07:35 Dose: 10 mg Phenylephrine HCl (Phenylephrine In Ns 100 Mcg/Ml) Confirm Administered Dose 1 mg .ROUTE .STK-MED ONE Stop: 07/24/18 12:06 Pregabalin (Lyrica) 50 mg PO ONETIME [facility] Stop: 07/24/18 10:00 Last Admin: 07/24/18 07:36 Dose: 50 mg Propofol (Diprivan 20 Ml) Confirm Administered Dose 400 mg .ROUTE .STK-MED ONE Stop: 07/24/18 07:44 Ropivacaine (Naropin 0.5%) Confirm Administered Dose 30 ml .ROUTE .STK-MED ONE Stop: 07/24/18 07:49 Sodium Chloride (Saline Flush) 10 ml FLUSH ASDIRECTED PRN PRN Reason: Keep Vein Open Stop: 07/24/18 18:00 Tranexamic Acid (Cyklokapron) Confirm Administered Dose 1,000 mg .ROUTE .STK- MED ONE Stop: 07/24/18 07:17 Last Admin: 07/24/18 09:24 Dose: 1,000 mg Triamcinolone Acetonide (Kenalog-40) Confirm Administered Dose 40 mg .ROUTE .STK -MED ONE Stop: 07/24/18 08:06 Last Admin: 07/24/18 09:38 Dose: 80 mg Triamcinolone Acetonide (Kenalog-40) Confirm Administered Dose 40 mg .ROUTE .STK -MED ONE Stop: 07/24/18 09:12 Vancomycin HCl (Vancomycin) Confirm Administered Dose 1 gm .ROUTE .STK-MED ONE Stop: 07/24/18 07:18 Last Admin: 07/24/18 09:20 Dose: 1 gm - Exam Wound/Incisions: Dressing Dry and Intact General: Alert, Cooperative, No Acute Distress Lungs: Normal Respiratory Effort Extremities: Other (NVS intact for BLE. Yomaira's negative.) - Problem List Review Problem List Initiated/Reviewed/Updated: Yes - My Orders Last 24 Hours: Active Orders 24 hr Category Date Time Status Cooling Warming Measures [RC] ASDIRECTED Care 07/24/18 10:06 Inactive Notify Provider [RC] ASDIRECTED Care 07/24/18 10:06 Active Oxygen Therapy [RC] ASDIRECTED Care 07/24/18 10:06 Inactive Pulse Oximetry [RC] ASDIRECTED Care 07/24/18 10:06 Inactive Ready for Discharge [RC] PER UNIT ROUTINE Care 07/25/18 07:46 Ordered Verify Patient Consent Obtain [RC] ASDIRECTED Care 07/24/18 07:00 Inactive Vital Signs [RC] Q15M Care 07/24/18 10:06 Inactive Regular Diet [DIET] Diet 07/24/18 Lunch Active ALPRAZolam [Xanax] Med 07/24/18 09:44 Active 0.25 mg PO Q12H PRN Acetaminophen/oxyCODONE [Percocet 325-5 MG] Med 07/24/18 09:30 Active 1 - 2 tab PO Q4H PRN Aspirin [Ecotrin] Med 07/25/18 09:00 Active 325 mg PO BID Bisacodyl [Dulcolax] Med 07/24/18 09:30 Active 5 mg PO DAILY PRN Cholecalciferol (Vitamin D3) [Vitamin D3] Med 07/25/18 09:00 Active 2,000 units PO DAILY Citalopram [Celexa] Med 07/25/18 09:00 Active 40 mg PO DAILY Cyclobenzaprine [Flexeril] Med 07/24/18 09:30 Active 10 mg PO TID PRN Famotidine [Pepcid] Med 07/24/18 21:00 Active 20 mg PO Q12H Magnesium Hydroxide [Milk of Magnesia] Med 07/24/18 09:30 Active 30 ml PO BID PRN Morphine Med 07/24/18 09:30 Active 2 mg IVPUSH Q2H PRN Naloxone [Narcan] Med 07/24/18 09:30 Active 0.1 mg IVPUSH Q5M PRN Ondansetron [Zofran] Med 07/24/18 09:30 Active 4 mg IVPUSH Q6H PRN Polyethylene Glycol 3350 [MiraLAX] Med 07/24/18 09:44 Active 17 gm PO TID PRN Sennosides [Senna] Med 07/24/18 09:30 Active 8.6 mg PO BID PRN Simvastatin [Zocor] Med 07/24/18 21:00 Active 10 mg PO BEDTIME Spironolactone [Aldactone] Med 07/25/18 09:00 Active 25 mg PO DAILY Zolpidem [Ambien] Med 07/24/18 21:00 Active 5 mg PO BEDTIME PRN ceFAZolin [Ancef] 2 gm Med 07/24/18 16:00 Active Premix Bag 1 bag IV Q8H Medication Administration Instruction [OM.PC] Routine Ot 07/24/18 07:00 Ordered Medication Orders Alprazolam (Xanax) 0.25 mg PO Q12H PRN PRN Reason: Anxiety Aspirin (Ecotrin) 325 mg PO BID [facility] Bisacodyl (Dulcolax) 5 mg PO DAILY PRN PRN Reason: Constipation Cholecalciferol (Vitamin D3) 2,000 units PO DAILY [facility] Citalopram Hydrobromide (Celexa) 40 mg PO DAILY [facility] Cyclobenzaprine HCl (Flexeril) 10 mg PO TID PRN PRN Reason: Spasms Last Admin: 07/25/18 07:07 Dose: 10 mg Famotidine (Pepcid) 20 mg PO Q12H [facility] Last Admin: 07/24/18 20:00 Dose: 20 mg Cefazolin Sodium/Dextrose 2 gm (/ Premix) 50 mls @ 100 mls/hr IV Q8H [facility] Stop: 07/25/18 08:29 Last Admin: 07/24/18 23:34 Dose: 100 mls/hr Infusion: 07/24/18 15:43 Dose: 100 mls/hr Admin: 07/24/18 15:13 Dose: 100 mls/hr Magnesium Hydroxide (Milk Of Magnesia) 30 ml PO BID PRN PRN Reason: Constipation Morphine Sulfate (Morphine) 2 mg IVPUSH Q2H PRN PRN Reason: Breakthrough Pain Naloxone HCl (Narcan) 0.1 mg IVPUSH Q5M PRN PRN Reason: Oversedation Ondansetron HCl (Zofran) 4 mg IVPUSH Q6H PRN PRN Reason: Nausea/Vomiting Oxycodone/Acetaminophen (Percocet 325-5 Mg) 1 - 2 tab PO Q4H PRN PRN Reason: Pain Last Admin: 07/25/18 04:22 Dose: 2 tab Admin: 07/24/18 23:52 Dose: 2 tab Admin: 07/24/18 19:58 Dose: 2 tab Admin: 07/24/18 14:08 Dose: 2 tab Polyethylene Glycol (Miralax) 17 gm PO TID PRN PRN Reason: Constipation Senna (Senna) 8.6 mg PO BID PRN PRN Reason: Constipation Simvastatin (Zocor) 10 mg PO BEDTIME DIANA Last Admin: 07/24/18 20:00 Dose: 10 mg Spironolactone (Aldactone) 25 mg PO DAILY DIANA Zolpidem Tartrate (Ambien) 5 mg PO BEDTIME PRN PRN Reason: Insomnia - Assessment Assessment (Free Text/Narrative):: POD#1 - right TKA with left knee cortisone injection - Plan Plan (Free Text/Narrative):: 1. Discharge to home today. 2. Outpatient therapy. 3. ASA 325mg PO BID, frequent mobility. 4. Hgb 12.2. The pt's case was discussed with Dr. Rodriguez.
--- NOTE | 2018-07-25 07:50 | PCM.DCSUM1 ---
Discharge Summary - Hospital Course Brief History: Ermelinda is a 58 yo female who underwent right TKA with left knee cortisone injection with Dr. Rodriguez on 07-24-2018. The procedure was completed under spinal anesthesia. The pt tolerated the procedure well and was admitted to the Medical-Surgical Unit. Medical management was provided by the Hospitalist service. The pt's Hospital course was uneventful. The pt's Hgb on POD#1 was 12.2. On POD#1, 325mg ASA BID was initiated for VTE prophylaxis. SCDs and TEDs were also ordered. A Mepilex dressing was placed at the incision site at the time of surgery and remained clean and dry. The pt participated in P.T. and O.T. and progressed well. The pt was allowed to WBAT and used a FWW for mobility. On POD#1, the pt was deemed appropriate to discharge to home with her . - Discharge Data Discharge Date: 07/25/18 Discharge Disposition: Home, Self-Care 01 Condition: Good - Patient Summary/Data Consults: Consultations 07/24/18 06:33 OT Evaluation and Treatment [CONS] Routine PT Evaluation and Treatment [CONS] Routine 07/24/18 06:34 Consult to Physician [CONS] Routine - Patient Instructions Diet: Usual Diet as Tolerated Activity: Apply Ice, As Tolerated, Elevate Extremity, Full Weight Bearing Driving: Do Not Drive Showering/Bathing: May Shower Wound/Incision Care: Keep Operative Site/Wound Site Clean and Dry, Do NOT Change Dressing Notify Provider of: Fever, Increased Pain, Swelling and Redness, Drainage, Nausea and/or Vomiting Other/Special Instructions: Please get up and moving around EVERY HOUR while awake. Take a short walk every hour while awake. This helps to prevent blood clots. Have help with mobility as needed. Please take 325mg aspirin twice daily - this also helps to prevent blood clots. The medication is being used for blood clot prevention and not for pain control, so please use the medication twice daily as directed. You could use a medication like Zantac or Pepcid and a medication like omeprazole (Prilosec) or Nexium to protect your stomach while using the aspirin. Please wear the KAREN hose during the day and you may remove them at night. Please schedule for P.T. Complete the P.T. exercises and stretches that were instructed in the Hospital. Please use the pain medication as needed. The medication may cause drowsiness and/or constipation. You could use a stool softener like docusate sodium or Colace 100mg twice daily and/or a laxative like Miralax daily for constipation. Contact your primary care provider for further instructions if you are constipated. Discontinue use of the pain medication as soon as able. Please do not use other medications that may cause drowsiness (other pain medications, anxiety pills, sleeping pills, allergy medications that cause drowsiness) while using the pain medication. Please do not use alcohol while using the pain medication. Use the incentive spirometer often. Please place ice to the surgical site often. Place a towel between your skin and the blue pad. Please elevate the limb to decrease swelling. Keep the dressing in place until follow- up. Please notify the Clinic if the dressing is saturated or rolls. Increase protein intake in your diet as this helps with healing. If you are a diabetic, please closely monitor your blood sugars and notify your primary care provider of your values. Elevated blood sugars increases the risk of infection. Please call [phone] with questions or concerns. - Discharge Plan *PRESCRIPTION DRUG MONITORING PROGRAM REVIEWED*: No *COPY OF PRESCRIPTION DRUG MONITORING REPORT IN PATIENT TASH: No Prescriptions/Med Rec: Acetaminophen/oxyCODONE [Percocet 325-5 MG] 1 - 2 tab PO Q6H PRN #60 tablet PRN Reason: Pain Aspirin [Ecotrin] 325 mg PO BID #84 tab.ec Cyclobenzaprine [Flexeril] 10 mg PO TID PRN #40 tablet PRN Reason: Spasms Home Medications: Home Meds Escitalopram Oxalate 20 mg PO DAILY 01/26/16 [History] Spironolactone [Aldactone] 25 mg PO DAILY 01/26/16 [History] Zolpidem Tartrate 5 mg PO BEDTIME PRN 01/26/16 [History] Cholecalciferol (Vitamin D3) [Vitamin D3] 2,000 unit PO DAILY 01/27/16 [History] Docusate Sodium [Colace] 100 mg PO BID cap 01/30/16 [Rx] Polyethylene Glycol 3350 [MiraLAX] 17 gm PO TID PRN #0 packet 01/30/16 [Rx] ALPRAZolam [Xanax] 0.25 mg PO Q12H PRN 07/21/18 [History] Prochlorperazine Maleate [Compazine] 10 mg PO QID PRN 07/21/18 [History] atorvaSTATin [Lipitor] 10 mg PO BEDTIME 07/21/18 [History] Acetaminophen/oxyCODONE [Percocet 325-5 MG] 1 - 2 tab PO Q6H PRN #60 tablet [Rx] Aspirin [Ecotrin] 325 mg PO BID #84 tab.ec 07/24/18 [Rx] Bisacodyl [Dulcolax] 5 mg PO DAILY PRN tablet 07/24/18 [Rx] Cyclobenzaprine [Flexeril] 10 mg PO TID PRN #40 tablet 07/24/18 [Rx] Famotidine [Pepcid] 20 mg PO Q12H tablet 07/24/18 [Rx] Magnesium Hydroxide [Milk of Magnesia] 30 ml PO BID PRN cup 07/24/18 [Rx] Sennosides [Senna] 8.6 mg PO BID PRN tablet 07/24/18 [Rx] Patient Handouts: Steps to Quit Smoking Referrals: Jamia Avila PA-C [Physician [employer] Engineer] - - Discharge Summary/Plan Comment DC Time >30 min.: No - Patient Data Vitals - Most Recent: Last Vital Signs Temp 97.9 F 07/24/18 23:43 Pulse 74 07/25/18 04:25 Resp 18 07/25/18 04:25 BP 134/73 07/25/18 04:25 Pulse Ox 98 07/25/18 04:25 Weight - Most Recent: 136 lb 11.2 oz I&O - Last 24 hours: Intake & Output 07/24/18 07/25/18 07/25/18 22:59 06:59 14:59 Intake Total 500 1250 Output Total 2750 Balance 500 -1500 Lab Results - Last 24 hrs: Laboratory Results - last 24 hr 07/25/18 07/25/18 Range/Units 05:41 05:41 WBC 7.99 (3.98-10.04) K/mm3 RBC 3.76 L (3.98-5.22) M/mm3 Hgb 12.2 (11.2-15.7) gm/L Hct 36.1 (34.1-44.9) % MCV 96.0 H (79.4-94.8) fl MCH 32.4 H (25.6-32.2) pg MCHC 33.8 (32.2-35.5) g/dl RDW Std Deviation 43.2 (36.4-46.3) fL Plt Count 244 (182-369) K/mm3 MPV 10.2 (9.4-12.3) fl Sodium 135 L (136-145) mEq/L Potassium 4.2 (3.5-5.1) mEq/L Chloride 99 (98-107) mEq/L Carbon Dioxide 27 (21-32) mEq/L Anion Gap 13.2 (5-15) BUN 13 (7-18) mg/dL Creatinine 0.8 (0.55-1.02) mg/dL Est Cr Clr Drug Dosing 61.36 mL/min Estimated GFR (MDRD) > 60 (>60) mL/min BUN/Creatinine Ratio 16.3 (14-18) Glucose 140 H (74-106) mg/dL Calcium 9.0 (8.5-10.1) mg/dL Total Bilirubin 0.5 (0.2-1.0) mg/dL AST 16 (15-37) U/L ALT 33 (14-59) U/L Alkaline Phosphatase 50 (46-116) U/L Total Protein 6.6 (6.4-8.2) g/dl Albumin 3.5 (3.4-5.0) g/dl Globulin 3.1 gm/dL Albumin/Globulin Ratio 1.1 (1-2) Med Orders - Current: Current Medications Alprazolam (Xanax) 0.25 mg PO Q12H PRN PRN Reason: Anxiety Aspirin (Ecotrin) 325 mg PO BID [facility] Bisacodyl (Dulcolax) 5 mg PO DAILY PRN PRN Reason: Constipation Cholecalciferol (Vitamin D3) 2,000 units PO DAILY [facility] Citalopram Hydrobromide (Celexa) 40 mg PO DAILY [facility] Cyclobenzaprine HCl (Flexeril) 10 mg PO TID PRN PRN Reason: Spasms Last Admin: 07/25/18 07:07 Dose: 10 mg Famotidine (Pepcid) 20 mg PO Q12H DIANA Last Admin: 07/24/18 20:00 Dose: 20 mg Cefazolin Sodium/Dextrose 2 gm (/ Premix) 50 mls @ 100 mls/hr IV Q8H [facility] Stop: 07/25/18 08:29 Last Admin: 07/24/18 23:34 Dose: 100 mls/hr Magnesium Hydroxide (Milk Of Magnesia) 30 ml PO BID PRN PRN Reason: Constipation Morphine Sulfate (Morphine) 2 mg IVPUSH Q2H PRN PRN Reason: Breakthrough Pain Naloxone HCl (Narcan) 0.1 mg IVPUSH Q5M PRN PRN Reason: Oversedation Ondansetron HCl (Zofran) 4 mg IVPUSH Q6H PRN PRN Reason: Nausea/Vomiting Oxycodone/Acetaminophen (Percocet 325-5 Mg) 1 - 2 tab PO Q4H PRN PRN Reason: Pain Last Admin: 07/25/18 04:22 Dose: 2 tab Polyethylene Glycol (Miralax) 17 gm PO TID PRN PRN Reason: Constipation Senna (Senna) 8.6 mg PO BID PRN PRN Reason: Constipation Simvastatin (Zocor) 10 mg PO BEDTIME [facility] Last Admin: 07/24/18 20:00 Dose: 10 mg Spironolactone (Aldactone) 25 mg PO DAILY [facility] Zolpidem Tartrate (Ambien) 5 mg PO BEDTIME PRN PRN Reason: Insomnia Discontinued Medications Acetaminophen (Tylenol) 975 mg PO ONETIME [facility] Stop: 07/24/18 10:00 Last Admin: 07/24/18 07:36 Dose: 975 mg Bupivacaine HCl (Sensorcaine-Mpf 0.25%) Confirm Administered Dose 30 ml .ROUTE .STK-MED ONE Stop: 07/24/18 07:18 Bupivacaine HCl (Sensorcaine-Mpf 0.25%) Confirm Administered Dose 10 ml .ROUTE .STK-MED ONE Stop: 07/24/18 07:48 Last Admin: 07/24/18 09:18 Dose: 30 ml Bupivacaine HCl (Marcaine 0.25%) Confirm Administered Dose 30 ml .ROUTE .STK- MED ONE Stop: 07/24/18 08:06 Bupivacaine HCl (Sensorcaine-Mpf 0.25%) Confirm Administered Dose 10 ml .ROUTE .STK-MED ONE Stop: 07/24/18 08:08 Last Admin: 07/24/18 09:38 Dose: 4 ml Bupivacaine HCl (Sensorcaine-Mpf 0.75%) Confirm Administered Dose 30 ml .ROUTE .STK-MED ONE Stop: 07/24/18 08:13 Cefazolin Sodium (Ancef) Confirm Administered Dose 2 gm .ROUTE .STK-MED ONE Stop: 07/24/18 07:18 Last Admin: 07/24/18 09:13 Dose: 2 gm Cefazolin Sodium (Ancef) Confirm Administered Dose 2 gm .ROUTE .STK-MED ONE Stop: 07/24/18 07:45 Morphine Sulfate 8 mg/Epinephrine HCl 0.3 mg/Cefuroxime Sodium 750 mg/Sodium Chloride 28.9 ml 0 mg .XX ONETIME ONE Stop: 07/24/18 08:31 Last Admin: 07/24/18 09:17 Dose: 758.3 mg Diphenhydramine HCl (Benadryl) 25 mg IVPUSH Q6H PRN PRN Reason: pruritis Stop: 07/24/18 13:00 Docusate Sodium (Colace) 100 mg PO BID [facility] Ephedrine Sulfate (Ephedrine In Ns) Confirm Administered Dose 25 mg .ROUTE .STK- MED ONE Stop: 07/24/18 09:06 Ephedrine Sulfate (Ephedrine In Ns) Confirm Administered Dose 25 mg .ROUTE .ST- MED ONE Stop: 07/24/18 11:24 Epinephrine HCl (Adrenalin) Confirm Administered Dose 1 mg .ROUTE .STK-MED ONE Stop: 07/24/18 07:49 Fentanyl (Sublimaze) 50 mcg IVPUSH Q5M PRN PRN Reason: Pain Stop: 07/24/18 13:00 Lactated Ringer's (Ringers, Lactated) 1,000 mls @ 125 mls/hr IV ASDIRECTED [facility] Stop: 07/24/18 23:00 Last Admin: 07/24/18 07:25 Dose: 125 mls/hr Lidocaine HCl (Xylocaine-Mpf 1%) Confirm Administered Dose 4 mls @ as directed .ROUTE .STK-MED ONE Stop: 07/24/18 07:48 Lidocaine HCl (Xylocaine-Mpf 1%) Confirm Administered Dose 5 mls @ as directed .ROUTE .STK-MED ONE Stop: 07/24/18 07:48 Lidocaine HCl (Xylocaine-Mpf 1%) Confirm Administered Dose 4 mls @ as directed .ROUTE .STK-MED ONE Stop: 07/24/18 08:32 Lactated Ringer's (Ringers, Lactated) Confirm Administered Dose 1,000 mls @ as directed .ROUTE .STK-MED ONE Stop: 07/24/18 08:45 Lactated Ringer's (Ringers, Lactated) Confirm Administered Dose 1,000 mls @ as directed .ROUTE .STK-MED ONE Stop: 07/24/18 11:29 Iodine (Iodine 2% Mild Tincture) Confirm Administered Dose 30 ml .ROUTE .STK- MED ONE Stop: 07/24/18 07:18 Last Admin: 07/24/18 09:11 Dose: 18 ml Lidocaine/Sodium Bicarbonate (Buffered Lidocaine 1% In Ns 8.4%) 0.25 ml IDERM ONETIME PRN PRN Reason: Prior to IV Start Stop: 07/24/18 18:00 Last Admin: 07/24/18 07:20 Dose: 0.25 ml Midazolam HCl (Versed 1 Mg/Ml) Confirm Administered Dose 2 mg .ROUTE .ST-MED ONE Stop: 07/24/18 07:45 Ondansetron HCl (Zofran) Confirm Administered Dose 4 mg .ROUTE .STK-MED ONE Stop: 07/24/18 08:21 Ondansetron HCl (Zofran) 4 mg IVPUSH ONETIME PRN PRN Reason: Nausea/Vomiting Stop: 07/24/18 13:00 Oxycodone HCl (Oxycontin) 10 mg PO ONETIME [facility] Stop: 07/24/18 10:00 Last Admin: 07/24/18 07:35 Dose: 10 mg Phenylephrine HCl (Phenylephrine In Ns 100 Mcg/Ml) Confirm Administered Dose 1 mg .ROUTE .STK-MED ONE Stop: 07/24/18 12:06 Pregabalin (Lyrica) 50 mg PO ONETIME [facility] Stop: 07/24/18 10:00 Last Admin: 07/24/18 07:36 Dose: 50 mg Propofol (Diprivan 20 Ml) Confirm Administered Dose 400 mg .ROUTE .STK-MED ONE Stop: 07/24/18 07:44 Ropivacaine (Naropin 0.5%) Confirm Administered Dose 30 ml .ROUTE .STK-MED ONE Stop: 07/24/18 07:49 Sodium Chloride (Saline Flush) 10 ml FLUSH ASDIRECTED PRN PRN Reason: Keep Vein Open Stop: 07/24/18 18:00 Tranexamic Acid (Cyklokapron) Confirm Administered Dose 1,000 mg .ROUTE .STK- MED ONE Stop: 07/24/18 07:17 Last Admin: 07/24/18 09:24 Dose: 1,000 mg Triamcinolone Acetonide (Kenalog-40) Confirm Administered Dose 40 mg .ROUTE .STK -MED ONE Stop: 07/24/18 08:06 Last Admin: 07/24/18 09:38 Dose: 80 mg Triamcinolone Acetonide (Kenalog-40) Confirm Administered Dose 40 mg .ROUTE .STK -MED ONE Stop: 07/24/18 09:12 Vancomycin HCl (Vancomycin) Confirm Administered Dose 1 gm .ROUTE .STK-MED ONE Stop: 07/24/18 07:18 Last Admin: 07/24/18 09:20 Dose: 1 gm
[2018-07-25] MEDS: ceFAZolin 2 GM in Premix Bag 1 BAG IV SCH (08:09)
[2018-07-25] MEDS: Famotidine 20 MG Tab PO SCH (08:11)
[2018-07-25 08:15] VITALS: BP 127/79
--- NOTE | 2018-07-25 08:37 | PCM48HPAN ---
Post Anesthesia Note - EVALUATION WITHIN 48HRS OF ANESTHETIC Vital Signs in Normal Range: Yes Patient Participated in Evaluation: Yes Respiratory Function Stable: Yes Airway Patent: Yes Cardiovascular Function Stable: Yes Hydration Status Stable: Yes Pain Control Satisfactory: Yes Nausea and Vomiting Control Satisfactory: Yes Mental Status Recovered: Yes
[2018-07-25] MEDS ORDERED: Citalopram 20 MG Tab PO SCH (09:00)
[2018-07-25] MEDS ORDERED: Spironolactone 25 MG Tab PO SCH (09:00)
[2018-07-25] MEDS ORDERED: Aspirin 325 MG Tab.EC PO SCH (09:00)
[2018-07-25] MEDS ORDERED: Cholecalciferol (Vitamin D3) 1,000 Unit Tab PO SCH (09:00)
--- NOTE | 2018-07-28 09:42 | PCM.OPNOTE ---
- General Post-Op/Procedure Note Date of Surgery/Procedure: 07/24/18 Operative Procedure(s): right total knee arthroplasty with left knee corticosteroid injection Pre Op Diagnosis: bilateral knee osteoarthrosis Post-Op Diagnosis: Same Anesthesia Technique: Local, MAC, Spinal Primary Surgeon: Jasen Rodriguez Anesthesia Provider: Sushila Schneider Emergency Response Coordinator: Jamia Avila Emergency Response Coordinator: Yaneli Darling EBL in mLs: 500 Complications: None Condition: Good Free Text/Narrative:: size 3/3 9mm 29x9
--- NOTE | 2018-07-28 10:12 | OR ---
DATE OF OPERATION: 07/24/2018 SURGEON: Jasen Rodriguez MD OPERATION PERFORMED: Right total knee arthroplasty with left knee corticosteroid injection. PREOPERATIVE DIAGNOSIS: Bilateral knee osteoarthrosis. POSTOPERATIVE DIAGNOSIS: Bilateral knee osteoarthrosis. ANESTHESIA: Local MAC with spinal. ANESTHESIA PROVIDER: Abilio Baca. FLAG DECORATOR: Jamia Avila PA-C and Yaneli Darling LPN. ESTIMATED BLOOD LOSS: 500 mL. COMPLICATIONS: None. CONDITION: Stable. IMPLANT: 1. Sandra size 3 press-fit CR femur. 2. [place] size 3 press-fit tibial base plate. 3. Sandra size 3, 9 mm CS polyethylene insert. 4. Sandra size 29 x 9 mm press-fit asymmetric patella. DESCRIPTION OF PROCEDURE: The patient was identified in the preop holding area. Proper site was marked and identified by the surgeon. The patient was taken back to the operating theater. After adequate anesthesia, the patient's right lower extremity had a nonsterile tourniquet applied and it was sterilely prepped and draped in the usual sterile fashion. OR time-out was performed. The patient received 2 g IV Ancef. At this time, the right lower extremity was exsanguinated. Tourniquet was insufflated to 300 mmHg. Standard medial parapatellar incision was made. Medial parapatellar arthrotomy was created. Deep fibers of the MCL were raised and anterior fat pad was resected. At this time, attention was turned to the patella. Patella measured 23, it was resected to a 13 for 29 x 9 mm patella. Drill holes were then drilled and found to be in adequate position. The drill was then drilled in the distal femur and the intramedullary distal femoral cutting guide was then placed. 8 mm was resected off the distal femur and was found to be an adequate resection. Sizing guide was placed. It was found to be a Sandra size 3 press-fit CR femur that was shown on the implant record at the beginning of this dictation. The drill holes were drilled for the epicondylar axis using Whitesides line and epicondyles as reference. At this time, the 4-in - 1 cutting block was placed. An anterior posterior and anterior and posterior chamfer cuts were then completed. Attention was turned to the tibia. The posterior medial lateral retractors were placed. The extramedullary tibial guide was placed. It was placed in the old footprint of the ACL. It was aligned with the center of the ankle and 0 degrees of slope, 9 mm was then resected off the unaffected side. There was found to be an acceptable reduction. At this time, posterior osteophytes were removed along with medial and lateral meniscus. A trial implant was placed with a correct sized tibia that was mentioned at the beginning of the dictation. A [place] size 3, 9 mm CS polyethylene insert was then placed. The patient's knee was brought through range of motion. The patella was tracking centrally and was stable to varus and valgus stress. Alignment was found to be roughly at 0 degrees. The tibia was stamped and drilled in proper rotation. The universal tibial base plate was impacted in place. Next, the [place] size 3 press-fit CR femur impacted into place and the [place] size 3, 9 mm CS polyethylene insert was placed. The patient's knee was brought into full extension. The patella was then press-fit in place at this time. Tourniquet was deflated. One liter dilute Betadine solution was irrigated through the knee along with 3 L of pulse lavage irrigation with Ancef. Periarticular injection was then completed. The patient's knee was brought through a range of motion. Knee was found to be stable to varus valgus stress, the patella was tracking centrally with full range of motion. At this time, a #2 barbed suture was used for closure of the medial parapatellar arthrotomy. Topical tranexamic acid was placed. 2-0 Vicryl was used subcutaneously, Prineo was used for the skin. The patient tolerated the procedure well and was sent to the PACU in stable condition. AFter this 2ml 40mg of Kenalog and 4ml 0.25% marcaine was injected to the left knee. MMODAL /[id number] JONATHAN
== END 2018-07-25 11:25 | disposition home or self-care (01) | DRG 302 ==
LOC: JD.MS 07:08 → EDSTATUS 11:00
PROVIDERS: ADMIT Orthopaedic Surgery; ATTEND Orthopaedic Surgery
PROC: 3E0U33Z Introduction of Anti-inflammatory into Joints, Percutaneous Approach (ICD-10-PCS; principal; 2018-07-24)
PROC: 3E0U3BZ Introduction of Anesthetic Agent into Joints, Percutaneous Approach (ICD-10-PCS; principal; 2018-07-24)
PROC: 0SRC0JA Replacement of Right Knee Joint with Synthetic Substitute, Uncemented, Open Approach (ICD-10-PCS; principal; 2018-07-24)
PROC: 3E0T3BZ Introduction of Anesthetic Agent into Peripheral Nerves and Plexi, Percutaneous Approach (ICD-10-PCS; 2018-07-24)
DX: M17.0 Bilateral primary osteoarthritis of knee (principal); F17.210 Nicotine dependence, cigarettes, uncomplicated; E78.5 Hyperlipidemia, unspecified; K59.09 Other constipation; R32 Unspecified urinary incontinence; F41.9 Anxiety disorder, unspecified; M25.761 Osteophyte, right knee; H54.7 Unspecified visual loss; E78.00 Pure hypercholesterolemia, unspecified; G89.18 Other acute postprocedural pain; G47.00 Insomnia, unspecified; Z79.82 Long term (current) use of aspirin; Z90.710 Acquired absence of both cervix and uterus; Z79.899 Other long term (current) drug therapy
CPT/HCPCS: 01402; 36415; 64450; 73560-26-RT; 73560-RT; 80053; 85027; 97110-GP; 97116-GP; 97161-GP; 97165-GO; 97535-GO; A9270-GY; C1776; J0171; J0690; J0697; J2001; J2250; J2270; J2370; J2405; J2704; J2795; J3301; J3370; J3490; J7050; J7120

== ENCOUNTER 2019-07-05 10:31 | Day surgery (SDC) | payer BC ==
[~2019-07-05 10:31] MED LIST changes: -Acetaminophen 325 MG Tab PO SCH; -Pregabalin 25 MG Cap PO SCH; -oxyCODONE ER 10 MG TAB.ER PO SCH
--- NOTE | 2019-07-05 12:30 | PCM.PREANE ---
Preanesthetic Assessment - Procedure Proposed Procedure: right carpal tunnel release - Anesthesia/Transfusion/Family Hx Anesthesia History: Prior Anesthesia Without Reaction Family History of Anesthesia Reaction: No Transfusion History: Prior Transfusion Without Reaction Intubation History: Unknown - Review of Systems General: No Symptoms Pulmonary: No Symptoms, Other (Smoker a few a day, not every day. Has quit in the past. ) Cardiovascular: No Symptoms (EKG SR with a BBB), Other (Hypertension) Gastrointestinal: No Symptoms Neurological: Numbness, Tingling (Right hand) Other: Reports: Depression, Anxiety - Physical Assessment NPO Status Date: 07/05/19 NPO Status Time: 04:00 Vital Signs: Last Vital Signs Temp 36.7 C 07/05/19 11:30 Pulse 78 07/05/19 11:30 Resp 16 07/05/19 11:30 BP 125/81 07/05/19 11:30 Pulse Ox 98 07/05/19 11:30 Height: 1.57 m Weight: 60.781 kg ASA Class: 2 Mental Status: Alert & Oriented x3 Airway Class: Mallampati = 1 Dentition: Reports: Normal Dentition Thyro-Mental Finger Breadths: 2 Mouth Opening Finger Breadths: 3 ROM/Head Extension: Full Lungs: Clear to Auscultation, Normal Respiratory Effort Cardiovascular: Regular Rate, Regular Rhythm - Lab Values: Laboratory Last Values MRSA (PCR) Negative 07/03/19 10:18 - Allergies Allergies/Adverse Reactions: Allergies Allergy/AdvReac Type Severity Reaction Status Date / Time No Known Allergies Allergy Verified 07/04/19 14:33 - Anesthesia Plan Pre-Op Medication Ordered: None - Acknowledgements Anesthesia Type Planned: MAC Pt an Appropriate Candidate for the Planned Anesthesia: Yes Alternatives and Risks of Anesthesia Discussed w Pt/Guardian: Yes Pt/Guardian Understands and Agrees with Anesthesia Plan: Yes PreAnesthesia Questionnaire HEENT History: Reports: Impaired Vision Other HEENT History: wears glasses Cardiovascular History: Reports: High Cholesterol, Hypertension Other Cardiovascular History: Hypotension Respiratory History: Reports: SOB Gastrointestinal History: Reports: Chronic Constipation Genitourinary History: Reports: Urinary Incontinence DIRECTOR OF ACQUISITIONS History: Reports: , Spontaneous Other OB/BYN History: pelvic prolapse Musculoskeletal History: Reports: Osteoarthritis Neurological History: Reports: None Psychiatric History: Reports: Anxiety, Depression, Other (See Below) Other Psychiatric History: hx of depression and anxiety but is notan issue at this time. Endocrine/Metabolic History: Reports: None Hematologic History: Reports: Blood Transfusion(s) Immunologic History: Reports: None Oncologic (Cancer) History: Reports: None Dermatologic History: Reports: None - Infectious Disease History Infectious Disease History: Reports: Chicken Pox - Past Surgical History Head Surgeries/Procedures: Reports: None HEENT Surgical History: Reports: None Cardiovascular Surgical History: Reports: None Respiratory Surgical History: Reports: None GI Surgical History: Reports: Colonoscopy Female Surgical History: Reports: Breast Biopsy, Tubal Ligation, Other (See Below) Other Female Surgeries/Procedures: tubes and uterus removed 01-27-16. Endocrine Surgical History: Reports: None Neurological Surgical History: Reports: None Musculoskeletal Surgical History: Reports: Knee Replacement Oncologic Surgical History: Reports: None Dermatological Surgical History: Reports: None - SUBSTANCE USE Smoking Status *Q: Current Every Day Smoker Recreational Drug Use History: No - HOME MEDS Home Medications: Home Meds Spironolactone [Aldactone] 25 mg PO DAILY 01/26/16 [History] ALPRAZolam [Xanax] 0.25 mg PO Q12H PRN 07/21/18 [History] Prochlorperazine Maleate [Compazine] 10 mg PO QID PRN 07/21/18 [History] Celecoxib 100 mg PO DAILY PRN 07/04/19 [History] Eszopiclone [Lunesta] 2 mg PO BEDTIME 07/04/19 [History] Vortioxetine Hydrobromide [Trintellix] 20 mg PO DAILY 07/04/19 [History] traMADol [Ultram] 50 - 100 mg PO Q6H PRN #10 tab 07/05/19 [Rx] - CURRENT (IN HOUSE) MEDS Current Meds: Current Medications Lactated Ringer's (Ringers, Lactated) 1,000 mls @ 125 mls/hr IV ASDIRECTED [facility] Stop: 07/05/19 23:00 Last Admin: 07/05/19 11:56 Dose: 125 mls/hr Lidocaine/Sodium Bicarbonate (Buffered Lidocaine 1% In Ns 8.4%) 0.25 ml IDERM ONETIME PRN PRN Reason: Prior to IV Start Stop: 07/05/19 18:00 Last Admin: 07/05/19 11:56 Dose: 0.25 ml Sodium Chloride (Saline Flush) 10 ml FLUSH ASDIRECTED PRN PRN Reason: Keep Vein Open Stop: 07/05/19 18:00
[2019-07-05] MEDS ORDERED: Bupivacaine 0.25% 10 ML SDV ONE (12:31)
[2019-07-05] MEDS ORDERED: Lidocaine 1% 50 ML MDV ONE (12:31)
[2019-07-05] MEDS ORDERED: Ketorolac 30 MG/ML SDV ONE (12:34)
[2019-07-05] MEDS ORDERED: Lactated Ringers 1,000 ML ONE (12:34)
[2019-07-05] MEDS ORDERED: ceFAZolin 1 GM Vial ONE (12:34)
[2019-07-05] MEDS ORDERED: Ondansetron 4 MG/2 ML SDV ONE (12:34)
[2019-07-05] MEDS ORDERED: Propofol 200 MG/20 ML SDV ONE (12:34)
[2019-07-05] MEDS ORDERED: Lidocaine 1% 4 ML ONE (12:35)
[2019-07-05] MEDS ORDERED: fentaNYL 100 MCG/2 ML SDV ONE (12:35)
[2019-07-05] MEDS ORDERED: Midazolam 1 MG/ML 2 ML SDV ONE (12:35)
[2019-07-05] MEDS ORDERED: traMADol 50 MG Tab PO PRN (13:31)
--- NOTE | 2019-07-05 13:32 | PCM48HPAN ---
Post Anesthesia Note - EVALUATION WITHIN 48HRS OF ANESTHETIC Vital Signs in Normal Range: Yes Patient Participated in Evaluation: Yes Respiratory Function Stable: Yes Airway Patent: Yes Cardiovascular Function Stable: Yes Hydration Status Stable: Yes Pain Control Satisfactory: Yes Nausea and Vomiting Control Satisfactory: Yes Mental Status Recovered: Yes Vital Signs: Last Vital Signs Temp 36.7 C 07/05/19 11:30 Pulse 78 07/05/19 11:30 Resp 16 07/05/19 11:30 BP 125/81 07/05/19 11:30 Pulse Ox 98 07/05/19 11:30 1326 97.1F 106/70 73 12 97%
[2019-07-05 13:57] VITALS: BP 117/76; PULSE 56
--- NOTE | 2019-07-09 07:12 | PCM.OPNOTE ---
- General Post-Op/Procedure Note Date of Surgery/Procedure: 07/05/19 Operative Procedure(s): right carpal tunnel release Pre Op Diagnosis: right median nerve compression neuropathy Post-Op Diagnosis: Same Anesthesia Technique: Local, MAC Primary Surgeon: Jasen Rodriguez Anesthesia Provider: Taylor Dutta Stone Gluer: Jamia Avila EBL in mLs: 5 Complications: None Condition: Good
--- NOTE | 2019-07-09 07:34 | OR ---
DATE OF OPERATION: 07/05/2019 SURGEON: Jasen Rodriguez MD OPERATION PERFORMED: Right carpal tunnel release. PREOPERATIVE DIAGNOSIS: Right median nerve compression neuropathy. POSTOPERATIVE DIAGNOSIS: Right median nerve compression neuropathy. ANESTHESIA: Local MAC. ANESTHESIA PROVIDER: Sonja White. OUTBOUND SALES REPRESENTATIVE: Jamia vAila PA-C ESTIMATED BLOOD LOSS: Less than 5 mL. COMPLICATIONS: None. CONDITION: Stable. DESCRIPTION OF PROCEDURE: The patient was identified in the preop holding area. Proper site was marked and identified by the surgeon. The patient was taken back to the operating theater where after adequate anesthesia, the patient's right upper extremity was sterilely prepped and draped in the usual sterile fashion. OR time-out was performed. The patient did not receive antibiotics and it is not indicated for soft tissue hand procedure. At this time, the right upper extremity was exsanguinated and an Esmarch was used as a tourniquet on the forearm. At this time, using 1% lidocaine without epinephrine and 0.25% Marcaine without epinephrine, the palmar cutaneous branch of the median nerve was anesthetized and then the incisional site was anesthetized using Copeland cardinal line and ulnar border of the fourth digit as reference. Once this had set up, an incision was made. Blunt dissection was taken down to the palmar cutaneous fascia. Palmar cutaneous fascia was incised with a Nenana blade. At this time, the transverse carpal ligament was identified. A small rent was made in the transverse carpal ligament with a Nenana blade under direct visualization. Resection of the transverse carpal ligament was done distally using tenotomy scissors making sure to stop short of the palmar arch. At this time, attention was turned proximally after it was found to be adequately released. Using the tenotomy scissors keeping the tips ulnar to protect the palmar cutaneous branch of the median nerve, the superficial forearm fascia as well as the transverse carpal ligament were resected proximally. It was found to be adequate release both proximally and distally. At this time, adequate saline was irrigated through the wound. 4-0 nylon sutures were used closure of the skin. The patient was placed in a sterile soft dressing and sent to PACU in stable condition. MMODAL /[id number]
== END 2019-07-05 14:13 | disposition home or self-care (01) ==
LOC: JD.SDS 10:31
PROVIDERS: ATTEND Orthopaedic Surgery
DX: G56.01 Carpal tunnel syndrome, right upper limb (principal); I10 Essential (primary) hypertension; F32.9 Major depressive disorder, single episode, unspecified; F41.9 Anxiety disorder, unspecified; M19.90 Unspecified osteoarthritis, unspecified site; F17.210 Nicotine dependence, cigarettes, uncomplicated; Z79.1 Long term (current) use of non-steroidal anti-inflammatories (NSAID); Z79.899 Other long term (current) drug therapy
CPT/HCPCS: 64721; 87641; A9270; J0690; J1885; J2001; J2250; J2704; J3010; J3490; J7120; 01810; J2405

== ENCOUNTER 2024-02-13 06:00 | Day surgery (SDC) | payer BC ==
[~2024-02-13 06:00] MED LIST changes: -Lactated Ringers 1,000 ML IV SCH; -Lidocaine 1%/Sod Bicarbonate in NS 8.4% 1 ML Syringe IDERM PRN; +Sodium Chloride 0.9% 10 ML Syringe FLUSH SCH
[2024-02-13] MEDS ORDERED: Propofol 200 MG/20 ML SDV ONE ×3 (06:07)
[2024-02-13] MEDS ORDERED: Lidocaine 1% 5 ML VIAL ONE (06:07)
[2024-02-13] MEDS ORDERED: Dexamethasone 4 MG/ML 5 ML MDV ONE (06:08)
[2024-02-13] MEDS ORDERED: Midazolam 1 MG/ML 2 ML SDV ONE (06:08)
[2024-02-13] MEDS ORDERED: ceFAZolin 2 GM Vial ONE (06:08)
[2024-02-13] MEDS ORDERED: fentaNYL 100 MCG/2 ML SDV ONE (06:08)
[2024-02-13] MEDS: Lactated Ringers 1,000 ML IV SCH (06:10)
[2024-02-13] MEDS ORDERED: EPINEPHrine 1 MG/ML SDV ONE (06:13)
[2024-02-13] MEDS ORDERED: Ropivacaine 0.5% 5 MG/ML 30 ML SDV ONE (06:13)
[2024-02-13] MEDS ORDERED: HYDROmorphone 0.5 MG/0.5 ML Syringe IVPUSH PRN (06:19)
[2024-02-13] MEDS ORDERED: Ondansetron 4 MG/2 ML SDV IVPUSH PRN (06:19)
[2024-02-13] MEDS ORDERED: fentaNYL 100 MCG/2 ML SDV IVPUSH PRN (06:19)
[2024-02-13] MEDS: Acetaminophen 325 MG Tab PO ONE (06:24)
[2024-02-13] MEDS: Pregabalin 25 MG Cap PO ONE (06:24)
[2024-02-13] MEDS: oxyCODONE ER 10 MG TAB.ER PO ONE (06:24)
[2024-02-13] MEDS ORDERED: Phenylephrine 1% 10 MG/ML SDV ONE (07:03)
[2024-02-13] MEDS ORDERED: Lactated Ringers 1,000 ML ONE ×2 (07:11→08:19)
[2024-02-13] MEDS ORDERED: ePHEDrine 50 MG/ML SDV ONE (07:15)
[2024-02-13] MEDS ORDERED: Ketorolac 30 MG/ML SDV ONE (07:58)
[2024-02-13] MEDS: Morphine 8 MG, EPINEPHrine 0.3 MG, Cefuroxime 750 MG, Ketorolac 30 MG, Sodium Chloride ... PRN (08:01)
[2024-02-13] MEDS: Vancomycin 1 GM SDV ONE (08:08)
[2024-02-13] MEDS: Tranexamic Acid 1,000 MG/10 ML Vial ONE (08:08)
[2024-02-13] MEDS: oxyCODONE 5 MG Tab PO PRN (11:08)
[2024-02-13 13:01] VITALS: BP 126/74; PULSE 70
== END 2024-02-13 13:20 | disposition home or self-care (01) ==
LOC: JD.SDS 06:00
PROVIDERS: ATTEND Orthopaedic Surgery
DX: M17.12 Unilateral primary osteoarthritis, left knee (principal); I10 Essential (primary) hypertension; E78.5 Hyperlipidemia, unspecified; F41.9 Anxiety disorder, unspecified; F32.A Depression, unspecified; Z87.891 Personal history of nicotine dependence
CPT/HCPCS: 0055T; 27447; 64447; 73560; 97116; 97161; A9270; C1713; C1776; J0171; J0690; J0697; J1100; J1885; J2250; J2270; J2371; J2704; J2795; J3010; J3370; J7120; 01402; J3490